=== PATIENT | female | born 1990 | race Caucasian/White ===

== ENCOUNTER 2022-04-07 05:33 | Emergency (ER) | payer OTHER ==
[~2022-04-07] VITALS: Ht 165.1 cm; Wt 72.6 kg
[2022-04-07 06:05] VITALS: BP 114/69
[2022-04-07] MEDS ORDERED: AMOX500C2 PO (06:24)
--- NOTE | 2022-04-07 06:29 | NUR ---
Patient discharged to home in stable condition. Written and verbal after care instructions given. Patient verbalizes understanding of instruction.
== END 2022-04-07 06:29 | disposition home or self-care (01) ==
LOC: ER 05:36
DX: H66.91 Otitis media, unspecified, right ear (principal); Z79.899 Other long term (current) drug therapy

== ENCOUNTER 2023-08-20 11:42 | Emergency (ER) | payer OTHER ==
[~2023-08-20] VITALS: Ht 165.1 cm; Wt 75.7 kg
[~2023-08-20 11:42] MED LIST: AMOX500C2 PO
[2023-08-20] MEDS ORDERED: ONDANSETRON HCL/PF 4 MG/2 ML VIAL ONE (12:32)
[2023-08-20] MEDS: IV D5/ 0.9% NACL 1,000 ML IV ONE (12:47)
[2023-08-20] MEDS: ONDANSETRON HCL/PF 4 MG/2 ML VIAL IVP ONE (12:48)
[2023-08-20 12:54] LABS: BASOPHILS % (AUTO) 0.2 % (0.0-2.0); EOSINOPHILS % (AUTO) 0.2 % (0.0-6.0); HEMATOCRIT 39 % (33-45); LYMPHOCYTES # (AUTO) 1.5 K/uL (0.8-4.8); LYMPHOCYTES % (AUTO) 12.4 % (20.0-44.0); MEAN CORPUSCULAR HEMOGLOBIN 32 PG (26.0-33.0); MEAN CORPUSCULAR HGB CONC 34 g/dl (31.0-36.0); MEAN CORPUSCULAR VOLUME 95 fL (82-100); MONOCYTES # (AUTO) 0.8 K/uL (0.1-1.30); MONOCYTES % (AUTO) 6.4 % (2.0-12.0); NEUTROPHILS # (AUTO) 10.1 K/uL (1.8-8.9); NEUTROPHILS % (AUTO) 80.8 % (43.0-81.0); PLATELET COUNT (AUTO) 287 K/uL (150-450); RED BLOOD CELL COUNT(AUTO) 4.05 MIL/uL (4.0-5.2); WHITE BLOOD COUNT (AUTO) 12.4 K/uL (4.3-11.0)
[2023-08-20 13:02] LABS: CALCIUM, SERUM 8.7 mg/dL (8.5-10.1); CREATININE 0.7 mg/dL (0.6-1.3); POTASSIUM 3.8 mmol/L (3.5-5.1)
[2023-08-20] MEDS: MECLIZINE HCL 12.5 MG TABLET PO ONE (14:04)
[2023-08-20] MEDS ORDERED: MECL-159 PO (14:29)
[2023-08-20] MEDS ORDERED: ONDA4TAB5 PO (14:46)
[2023-08-20 16:46] VITALS: BP 124/65; TEMP 98.1; O2SAT 98
== END 2023-08-20 16:47 | disposition home or self-care (01) ==
LOC: ER 11:42
DX: O21.0 Mild hyperemesis gravidarum (principal); R10.2 Pelvic and perineal pain; Z3A.01 Less than 8 weeks gestation of pregnancy
CPT/HCPCS: 99285; 96374; 76805; 96361; 85025; 80048; 36415; 84702; J2405; J7042

== ENCOUNTER 2023-08-31 07:32 | Emergency (ER) | payer OTHER ==
[~2023-08-31] VITALS: Ht 165.1 cm; Wt 76.2 kg
[~2023-08-31 07:32] MED LIST changes: +ONDA4TAB5 PO
[2023-08-31 08:36] LABS: BASOPHILS # (AUTO) 0.1 K/uL (0.0-0.2); BASOPHILS % (AUTO) 0.7 % (0.0-2.0); EOSINOPHILS # (AUTO) 0.1 K/uL (0.0-0.7); EOSINOPHILS % (AUTO) 1.2 % (0.0-6.0); HEMATOCRIT 35 % (33-45); HEMOGLOBIN 11.8 g/dL (11.5-14.8); LYMPHOCYTES # (AUTO) 1.3 K/uL (0.8-4.8); LYMPHOCYTES % (AUTO) 17.1 % (20.0-44.0); MEAN CORPUSCULAR HEMOGLOBIN 33 PG (26.0-33.0); MEAN CORPUSCULAR HGB CONC 34 g/dl (31.0-36.0); MEAN CORPUSCULAR VOLUME 96 fL (82-100); MONOCYTES # (AUTO) 0.5 K/uL (0.1-1.30); MONOCYTES % (AUTO) 6.1 % (2.0-12.0); NEUTROPHILS # (AUTO) 5.9 K/uL (1.8-8.9); NEUTROPHILS % (AUTO) 74.9 % (43.0-81.0); PLATELET COUNT (AUTO) 262 K/uL (150-450); RED BLOOD CELL COUNT(AUTO) 3.61 MIL/uL (4.0-5.2); RED CELL DISTRIBUTION WIDTH 12.8 % (11.5-15.0); WHITE BLOOD COUNT (AUTO) 7.8 K/uL (4.3-11.0)
[2023-08-31 08:38] LABS: APPEARANCE,URINE TURBID (CLEAR); BILIRUBIN,URINE 1+ (NEGATIVE); BLOOD, URINE 3+ Ery/uL (NEGATIVE); COLOR,URINE RED (YELLOW); KETONES,URINE TRACE mg/dL (NEGATIVE); LEUKOCYTE ESTERASE ,URINE 1+ (NEGATIVE); NITRITE, URINE POSITIVE (NEGATIVE); PROTEIN,URINE 2+ mg/dl (NEGATIVE); UGLUCOSE NEGATIVE (NEGATIVE)
[2023-08-31 08:39] LABS: PREGNANCY TEST URINE QUAL POSITIVE (NEGATIVE)
[2023-08-31 08:47] LABS: ALBUMIN 3.2 g/dL (3.4-5.0); BILIRUBIN,DIRECT 0.2 mg/dL (0.0-0.2); BILIRUBIN,TOTAL 0.8 mg/dL (0.2-1.0); CALCIUM, SERUM 8.6 mg/dL (8.5-10.1); CREATININE 0.9 mg/dL (0.6-1.3); POTASSIUM 4.1 mmol/L (3.5-5.1); TOTAL PROTEIN, SERUM 6.3 g/dL (6.4-8.2)
[2023-08-31 09:55] LABS: RBC,URINE 51-80 /HPF (0-2)
[2023-08-31] MEDS ORDERED: NITR100C6 PO (09:55)
[2023-08-31 09:56] LABS: ADD URINE CULTURE YES; BACTERIA,URINE 1+ /HPF (None Seen); MUCUS,URINE Moderate /LPF (None Seen)
[2023-08-31] MEDS ORDERED: NITROFURANTOIN/MONOHYDRATE MACROCRYSTALS 100 MG CAPSULE ONE (10:06)
[2023-08-31] MEDS: NITROFURANTOIN/MONOHYDRATE MACROCRYSTALS 100 MG CAPSULE PO ONE (10:06)
[2023-08-31 10:45] VITALS: BP 128/75; TEMP 98; O2SAT 99
== END 2023-08-31 10:46 | disposition home or self-care (01) ==
LOC: ER 07:42
DX: O46.90 Antepartum hemorrhage, unspecified, unspecified trimester (principal); R10.2 Pelvic and perineal pain; Z3A.00 Weeks of gestation of pregnancy not specified
CPT/HCPCS: 36415; 76856-TC; 80048-TC; 80076-TC; 81001; 83690-TC; 84702-TC; 84703-TC; 85025-TC; 86850-TC; 87086-TC

== ENCOUNTER 2024-08-26 12:58 | Emergency (ER) | payer OTHER ==
[~2024-08-26] VITALS: Ht 165.1 cm; Wt 79.4 kg
[~2024-08-26 12:58] MED LIST changes: +NITR100C6 PO
[2024-08-26 14:02] VITALS: BP 130/69; TEMP 98.1
[2024-08-26 14:19] VITALS: O2SAT 98
== END 2024-08-26 14:19 | disposition home or self-care (01) ==
LOC: ER 13:02
DX: M54.6 Pain in thoracic spine (principal); V43.52XA Car driver injured in collision with other type car in traffic accident, initial encounter; Y93.89 Activity, other specified; Y92.488 Other paved roadways as the place of occurrence of the external cause; Y99.8 Other external cause status